=== PATIENT | male | born 1955 | race Caucasian/White ===

== ENCOUNTER → 2018-06-24 | Outpatient (CLI) | payer OTHER ==
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
== END ==
LOC: M PAIN 14:45
PROVIDERS: ATTEND Anesthesiology
DX: G89.29 Other chronic pain (principal); M25.50 Pain in unspecified joint; F17.210 Nicotine dependence, cigarettes, uncomplicated; Z88.8 Allergy status to other drugs, medicaments and biological substances; Z86.2 Personal history of diseases of the blood and blood-forming organs and certain disorders involving the immune mechanism; Z91.030 Bee allergy status; Z79.899 Other long term (current) drug therapy

== ENCOUNTER → 2018-07-15 | Outpatient (CLI) | payer OTHER ==
[2018-07-15 16:15] LABS: C REACTIVE PROTEIN QUANTITATIV 0.59 MG/DL (0.00-0.30); RHEUMATOID FACTOR QUANT < 10.0 IU/ML (<15.0)
--- NOTE | 2018-07-15 16:24 | REP ---
BILATERAL SHOULDERS, SIX VIEWS: HISTORY: Polyarthropathy. RIGHT SHOULDER: There is no acute fracture or dislocation. The joint spaces are normal in appearance. IMPRESSION: There is no acute fracture or dislocation. LEFT SHOULDER: There is no acute fracture or dislocation. The joint spaces are normal in appearance. IMPRESSION: There is no acute fracture or dislocation. Electronically Signed by Jared Lira MD 07/15/2018 04:31 P
--- NOTE | 2018-07-15 16:26 | REP ---
CERVICAL SPINE, THREE VIEW: HISTORY: Left arm weakness. There is no acute fracture or subluxation. The C5-6 and C6-7 intervertebral discs are decreased in height consistent with disc degeneration. Osteophytes are present on C5 through C7. IMPRESSION: Degenerative change as described above. Electronically Signed by Jared Lira MD 07/15/2018 04:31 P
--- NOTE | 2018-07-15 16:27 | REP ---
BILATERAL HANDS, FOUR VIEWS: HISTORY: Polyarthropathy. RIGHT HAND: There is no acute fracture or dislocation. The joint spaces are normal in appearance. IMPRESSION: There is no acute fracture or dislocation. LEFT HAND: There is no acute fracture or dislocation. The joint spaces are normal in appearance. A small cyst is present in the navicular bone. IMPRESSION: There is no acute fracture or dislocation. Electronically Signed by Jared Lira MD 07/15/2018 04:32 P
--- NOTE | 2018-07-15 17:17 | REP ---
BILATERAL KNEES, FOUR VIEWS: HISTORY: Polyarthropathy. RIGHT KNEE: There is no acute fracture or dislocation. The joint spaces are normal in appearance. IMPRESSION:There is no acute fracture or dislocation. LEFT KNEE: There is no acute fracture or dislocation. The joint spaces are normal in appearance. IMPRESSION:There is no acute fracture or dislocation. Electronically Signed by Jared Lira MD 07/16/2018 08:20 A
[2018-07-18 00:06] LABS: ANA (HEP2) Negative (.)
== END ==
LOC: M LAB 15:22
PROVIDERS: ATTEND Family Medicine
DX: M13.0 Polyarthritis, unspecified (principal)

== ENCOUNTER → 2019-09-01 | Outpatient (REF) | payer OTHER | LOC: M SFHCPLAZ 11:41 | PROVIDERS: ATTEND Internal Medicine | DX: Z00.00 Encounter for general adult medical examination without abnormal findings (principal); Z13.220 Encounter for screening for lipoid disorders; Z13.1 Encounter for screening for diabetes mellitus; Z86.2 Personal history of diseases of the blood and blood-forming organs and certain disorders involving the immune mechanism ==

== ENCOUNTER → 2019-09-03 | Outpatient (REF) | payer OTHER ==
[2019-09-03 17:40] LABS: HEMATOCRIT 45.1 % (42.0-52.0); HEMOGLOBIN 15.4 g/dl (13.5-17.5); MEAN CORPUSCULAR HEMOGLOBIN 31.1 pg (27.0-33.0); MEAN CORPUSCULAR HGB CONC 34.1 g/dl (32.0-36.5); MEAN CORPUSCULAR VOLUME 91.1 fl (80.0-96.0); PLATELET COUNT, AUTOMATED 272 10^3/uL (150-450); RED BLOOD COUNT 4.95 10^6/uL (4.30-6.10); WHITE BLOOD COUNT 10.4 10^3/uL (4.0-10.0)
[2019-09-03 18:24] LABS: ALBUMIN 3.8 GM/DL (3.2-5.2); ALT/SGPT 25 U/L (12-78); BILIRUBIN,TOTAL 0.7 MG/DL (0.2-1.0); BLOOD UREA NITROGEN 16 MG/DL (7-18); CALCIUM LEVEL 8.9 MG/DL (8.8-10.2); CARBON DIOXIDE LEVEL 28 MEQ/L (21-32); CHLORIDE LEVEL 102 MEQ/L (98-107); CHOLESTEROL LEVEL 207 MG/DL (<200); CHOLESTEROL RISK RATIO 6.468 (<5); CREATININE FOR GFR 0.89 MG/DL (0.70-1.30); GLOMERULAR FILTRATION RATE > 60.0 (>49); GLUCOSE, FASTING 73 MG/DL (70-100); HDL CHOLESTEROL 32 MG/DL (>40); LDL CHOLESTEROL 158 MG/DL (<100); NON-HDL-C 175 MG/DL; POTASSIUM SERUM 4.3 MEQ/L (3.5-5.1); SODIUM LEVEL 135 MEQ/L (136-145); TOTAL PROTEIN 7.4 GM/DL (6.4-8.2); TRIGLYCERIDES LEVEL 83 MG/DL (<150)
== END ==
LOC: M SFHCPLAZ 15:38
PROVIDERS: ATTEND Internal Medicine
DX: Z00.00 Encounter for general adult medical examination without abnormal findings (principal); Z13.220 Encounter for screening for lipoid disorders; Z13.1 Encounter for screening for diabetes mellitus; Z86.2 Personal history of diseases of the blood and blood-forming organs and certain disorders involving the immune mechanism

== ENCOUNTER → 2019-11-26 | Outpatient (CLI) | payer OTHER ==
[~2019-11-26] MED LIST: ATOR40TA75 PO; OMEP-218 PO
== END ==
LOC: M LABSMTC 10:27
PROVIDERS: ATTEND Internal Medicine Gastroenterology
DX: Z03.818 Encounter for observation for suspected exposure to other biological agents ruled out (principal); Z11.59 Encounter for screening for other viral diseases

== ENCOUNTER 2019-12-01 09:38 | Day surgery (SDC) | payer OTHER ==
[~2019-12-01] VITALS: Ht 177.8 cm; Wt 88.2 kg
[~2019-12-01 09:38] MED LIST changes: +LIDOCAINE 2% 100MG/5ML SDV (FOR ANES.) As Ordered ONE; +propofoL 200 MG/20 ML VIAL As Ordered ONE
[2019-12-01] MEDS ORDERED: ADVATE IV ONE (10:30)
[2019-12-01] MEDS ORDERED: propofoL 200 MG/20 ML VIAL As Ordered ONE (11:55)
[2019-12-01 12:51] VITALS: BP 114/76
--- NOTE | 2020-02-04 15:42 | ROOR ---
Patient Name: Rafael Palacio Procedure Date: 12/01/2019 8:57 AM Date of : 1955 Age: 64 Room: [facility] Gender: Male Note Status: Finalized Procedure: Colonoscopy Indications: Screening for colorectal malignant neoplasm Providers: Bakari Higuera MD Referring MD: Abraham Vitale Do Requesting Provider: Medicines: Monitored Anesthesia Care Complications: No immediate complications. Procedure: Pre-Anesthesia Assessment: - Prior to the procedure, a History and Physical was performed, and patient medications and allergies were reviewed. The patient is competent. The risks and benefits of the procedure and the sedation options and risks were discussed with the patient. All questions were answered and informed consent was obtained. Patient identification and proposed procedure were verified by the physician, the nurse and the anesthesiologist in the procedure room. Mental Status Examination: alert and oriented. Airway Examination: normal oropharyngeal airway and neck mobility. Respiratory Examination: clear to auscultation. CV Examination: normal. Prophylactic Antibiotics: The patient does not require prophylactic antibiotics. Prior Anticoagulants: The patient has taken no previous anticoagulant or antiplatelet agents. ASA Grade Assessment: II - A patient with mild systemic disease. After reviewing the risks and benefits, the patient was deemed in satisfactory condition to undergo the procedure. The anesthesia plan was to use monitored anesthesia care (MAC). Immediately prior to administration of medications, the patient was re-assessed for adequacy to receive sedatives. The heart rate, respiratory rate, oxygen saturations, blood pressure, adequacy of pulmonary ventilation, and response to care were monitored throughout the procedure. The physical status of the patient was re-assessed after the procedure. The Colonoscope was introduced through the anus and advanced to the terminal ileum, with identification of the appendiceal orifice and IC valve. The colonoscopy was performed without difficulty. The patient tolerated the procedure well. The quality of the bowel preparation was good. The terminal ileum, ileocecal valve, appendiceal orifice, and rectum were photographed. Scope insertion time was 4 minutes. Scope withdrawal time was 9 minutes. The total duration of the procedure was 14 minutes. Findings: The perianal and digital rectal examinations were normal. The terminal ileum appeared normal. Two sessile polyps were found in the descending colon and transverse colon. The polyps were 6 to 9 mm in size. These polyps were removed with a cold snare. Resection and retrieval were complete. For hemostasis, one hemostatic clip was successfully placed. There was no bleeding at the end of the procedure. Verification of patient identification for the specimen was done by the physician and nurse using the patient's name, date and medical record number. Estimated blood loss was minimal. Multiple small and large-mouthed diverticula were found from sigmoid to descending colon. There was no evidence of diverticular bleeding. Non-bleeding external and internal hemorrhoids were found during retroflexion. The hemorrhoids were medium-sized. Impression: - The examined portion of the ileum was normal. - Two 6 to 9 mm polyps in the descending colon and in the transverse colon, removed with a cold snare. Resected and retrieved. Clip was placed. - Moderate diverticulosis from sigmoid to descending colon. There was no evidence of diverticular bleeding. - Non-bleeding external and internal hemorrhoids. Recommendation: - Patient has a contact number available for emergencies. The signs and symptoms of potential delayed complications were discussed with the patient. Return to normal activities tomorrow. Written discharge instructions were provided to the patient. - High fiber diet. - Continue present medications. - Use fiber, for example Citrucel, Fibercon, Konsyl or Metamucil. - Await pathology results. - Repeat colonoscopy in 5-10 years for surveillance based on pathology results. - Telephone GI clinic for pathology results in 2 weeks. - Return to primary care physician. Bakari Higuera MD Bakari Higuera MD 12/01/2019 12:29:41 PM Number of Addenda: 0 Note Initiated On: 12/01/2019 8:57 AM Estimated Blood Loss: Estimated blood loss was minimal.
== END 2019-12-01 13:10 | disposition home or self-care (01) ==
LOC: M OPP 09:38
PROVIDERS: ATTEND Internal Medicine Gastroenterology
DX: Z12.11 Encounter for screening for malignant neoplasm of colon (principal); D12.6 Benign neoplasm of colon, unspecified; K64.8 Other hemorrhoids; K57.30 Diverticulosis of large intestine without perforation or abscess without bleeding
CPT/HCPCS: 45385; 88305; 96374; J7186

== ENCOUNTER 2020-05-24 12:28 | Emergency (ER) | payer OTHER ==
[~2020-05-24] VITALS: Ht 177.8 cm; Wt 91.6 kg
[~2020-05-24 12:28] MED LIST changes: -LIDOCAINE 2% 100MG/5ML SDV (FOR ANES.) As Ordered ONE; -propofoL 200 MG/20 ML VIAL As Ordered ONE
--- OUTSIDE RECORDS SUMMARY | 2020-05-24 13:07 | CCD ---
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 79912494 Problem Gastroesophageal reflux disease without esophagitis K21.9 Active 341836021 Problem Cigarette nicotine dependence without complication F17.210 Active 04712173 Problem Esophageal dysphagia R13.10 Active 67127983 Problem Constipation, unspecified constipation type K59.00 Active 24128148 Problem Smoker F17.200 Active 25529765 Problem History of hemophilia A Z86.2 Active 29806433 7 Problem Pain of multiple sites R52 Active 46264843 Problem Multiple joint pain M25.50 Active 13087098 ALLERGIES Allergen (clinical drug ingredient) Drug/Non Drug Allergy do cumented on EMR Reaction Allergy Type Onset Date Status bees Anaphylaxis Non Drug Allergy Active anticoagulants - hx of hemophilia Unknown Non Drug Reagan rgy Active ENCOUNTERS from 1955 to 2020-03-08 [place]counter [place] Date Provider [place] [facility] [place] [address] [place] [address] Mar, Abraham Jones IMMUNIZATIONS Vaccine Route Administration Date Status Influenza (18 yrs & older) Flublok IM Intramuscular June 10 Administered Pneumococcal Adult 0.5mL (Pneumovax 23) IM Intramuscular May 312018 Administered SOCIAL HISTORY Tobacco Use: Social History Observation Description Date Details (start date - stop date) Current Smoker Sex Assigned At : Social History Observation Description Sex Assigned At Unknown Education: Question Answer Notes Level of Education: High School Audit Question Answer Notes Total Score: 0 Interpretation: Alcohol Education Language: Question Answer Notes Languages spoken: Palauan Evangelical: Question Answer Notes Evangelical No faith beliefs that would impact health care. Domestic Violence: Question Answer Notes Status: Sexual Hx: Question Answer Notes Had sex in the last 12 months (vaginal, oral, or anal)? No Have you ever had an STD? No Drug and Alcohol Question Answer Notes Total Score: 0 Interpretation: No problems reported Alcohol Screening: Question Answer Notes Did you have a drink containing alcohol in the past year? No Points 0 Interpretation Negative Tobacco Use: Question Answer Notes Are you a: current smoker Patient counseled on the dangers of tobacco use and urged to quit: 06/30/2019 How many cigarettes a day do you smoke? 21- Are you interested in quitting? Not ready to quit Counseled the patient on smoking effects, education provided 06/30/2019 REASON FOR REFERRAL No Information VITAL SIGNS No information MEDICATIONS Medication SIG (Take, Route, Frequency, Duration) Notes Start Da te End Date Status Cymbalta 30 MG 1 capsule for pain Orally with food Once a day f or 30 day(s) May, Not-Taking EpiPen 2-Guillermo 0.3 MG/0.3ML as directed Injection At ons et of bee sting, then see doctor for 90 day(s) May, Active Polyethylene Glycol 3350 - as directed Orally BID x3 days, then daily PRN May, Active Omeprazole 20 MG 1 capsule Orally Once a day before largest meal for 90 days May, Active Zanaflex 2 MG 1 capsule as needed Orally b efore bedtime May repeat in 4 hrs for 30 day(s) May, Not-Taking Atorvastatin Calcium 40 MG 1 tablet Orally Once a day for 30 Active Tizanidine HCl 2 MG 1 tablet as needed Orally be fore bedtime May repeat in 4 hrs MDD2 for 30 day(s) May, Not-Taking Ventolin HFA 108 (90 Base) MCG/ACT 2 puffs as needed I nhalation every 6 hrs for 90 day(s) May, Active PROCEDURES No Information RESULTS No Results REASON FOR VISIT rx MEDICAL (GENERAL) HISTORY Type Description Date Medical History Hemophilia A Medical History Smoker, 1.5 ppd; >50 pk-yr Surgical History hernia repair 1968 Surgical History hernia repair 1999 Hospitalization History surgeries Hospitalization History related to hemophilia 1963, 1967, 19 75 Goals Section No Information Health Concerns No Information MEDICAL EQUIPMENT No Information MENTAL STATUS No Information FUNCTIONAL STATUS No Information ASSESSMENTS No Information PLAN OF TREATMENT Medication Medication Name Sig Start Date Stop Date EpiPen 2-Guillermo 0.3 MG/0.3ML as directed Injection At ons et of bee sting, then see doctor for 90 day(s) May, Atorvastatin Calcium 40 MG 1 tablet Orally Once a day for 30 Omeprazole 20 MG 1 capsule Orally Once a day before large st meal for 90 days May, Next Appt Details Provider Name:Abraham Jones, 2020-03-16 10:30:00 AM, [address] [facility], [place], [address], Insurance Providers Payer Name Payer Address Payer Phone Insured Name Patient Relati onship to Insured Coverage Start Date Coverage End Date [employer] [address] [facility] [phone] GELACIO REZA self
--- OUTSIDE RECORDS SUMMARY | 2020-05-24 13:07 | CCD ---
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 71156388 Problem Constipation, unspecified constipation type K59.00 Active 69157876 Problem Smoker F17.200 Active 84781975 Problem Pure hypercholesterolemia E78.00 Active 456930 004 Problem Gastroesophageal reflux disease without esophagitis K21.9 Active 968360379 Problem History of hemophilia A Z86.2 Active 82149582 7 Problem Pain of multiple sites R52 Active 24091721 Problem Multiple joint pain M25.50 Active 32772528 Problem Cigarette nicotine dependence without complication F17.210 Active 49635576 ALLERGIES Allergen (clinical drug ingredient) Drug/Non Drug Allergy do cumented on EMR Reaction Allergy Type Onset Date Status bees Anaphylaxis Non Drug Allergy Active anticoagulants - hx of hemophilia Unknown Non Drug Reagan rgy Active ENCOUNTERS from 1957 to 2020-04-28 Encounter Location Date Provider Diagnosis [facility] Urology [address] [place] [address] Apr Abraham Jones IMMUNIZATIONS Vaccine Route Administration Date Status Influenza (18 yrs & older) Flublok IM Intramuscular June 10 Administered Pneumococcal Adult 0.5mL (Pneumovax 23) IM Intramuscular May 312018 Administered TDAP 0.5mL (Boostrix) IM Intramuscular Mar 17, 2020 Administe red SOCIAL HISTORY Tobacco Use: Social History Observation Description Date Details (start date - stop date) Current Smoker Sex Assigned At : Social History Observation Description Sex Assigned At Unknown Education: Question Answer Notes Level of Education: High School Audit Question Answer Notes Total Score: 0 Interpretation: Alcohol Education Language: Question Answer Notes Languages spoken: [place] Helen[place] Christian: Question Answer Notes Christian No voodoo beliefs that would impact health care. Domestic [...] many cigarettes a day do you smoke? 21-30 Are you interested in quitting? Not ready to quit Counseled the patient on smoking effects, education provided 06/30/2019 REASON FOR REFERRAL No Information VITAL SIGNS No information MEDICATIONS Medication SIG (Take, Route, Frequency, Duration) Notes Start Da te End Date Status Tizanidine HCl 2 MG 1 tablet as needed Orally be fore bedtime May repeat in 4 hrs MDD2 for 30 day(s) May, Not-Taking Polyethylene Glycol 3350 - as directed Orally BID x3 days, then daily PRN May, Active Omeprazole 20 MG 1 capsule Orally Once a day before largest meal for 90 days May, Active Atorvastatin Calcium 40 MG 1 tablet Orally Once a day for 30 Active Cymbalta 30 MG 1 capsule for pain Orally with food Once a day f or 30 day(s) May, Not-Taking Zanaflex 2 MG 1 capsule as needed Orally b efore bedtime May repeat in 4 hrs for 30 day(s) May, Not-Taking EpiPen 2-Guillermo 0.3 MG/0.3ML as directed Injection At ons et of bee sting, then see doctor for 90 day(s) May, Active Ventolin HFA 108 (90 Base) MCG/ACT 2 puffs as needed I nhalation every 6 hrs for 90 day(s) May, Active PROCEDURES No Information RESULTS No Results REASON FOR VISIT refill MEDICAL (GENERAL) HISTORY Type Description Date Medical History Hemophilia A Medical History Smoker, 1.5 ppd; >50 pk-yr Surgical History hernia repair 1968 Surgical History hernia repair 1999 Hospitalization History surgeries Hospitalization History related to hemophilia 1967, [age] Goals Section No Information Health Concerns No Information MEDICAL EQUIPMENT No Information MENTAL STATUS No Information FUNCTIONAL STATUS No Information ASSESSMENTS No Information PLAN OF TREATMENT Medication Medication Name Sig Start Date Stop Date Atorvastatin Calcium 40 MG 1 tablet Orally Once a day for 30 Insurance Providers Payer Name Payer Address Payer Phone Insured Name Patient Relati onship to Insured Coverage Start Date Coverage End Date [facility] [address] [facility] [address] [phone] GELACIO REZA self
--- OUTSIDE RECORDS SUMMARY | 2020-05-24 13:07 | CCD ---
Author Author [facility] Organization [facility] Address Unknown Phone Unavailable Support Name Relationship Address Phone [employer] Next Of Kin [address] [place], [place] [phone] YASMINE REZA Next Of Kin [address] [place] [address] ASHLYN LAKHANI Next Of Kin [place], [place] [id number] Re-disclosure Warning The records that you are about to access may contain information from federally-assisted alcohol or drug abuse programs. If such information is present, then the following federally mandated warning applies: This information has been disclosed to you from records protected by federal confidentiality rules (42 CFR part 2). The federal rules prohibit you from making any further disclosure of this information unless further disclosure is expressly permitted by the written consent of the person to whom it pertains or as otherwise permitted by 42 CFR part 2. A general authorization for the release of medical or other information is NOT sufficient for this purpose. The Federal rules restrict any use of the information to criminally investigate or prosecute any alcohol or drug abuse patient.The records that you are about to access may contain highly sensitive health information, the redisclosure of which is protected by Article 27-F of the [facility] Public Health law. If you continue you may have access to information: Regarding HIV / AIDS; Provided by facilities licensed or operated by the [facility] Office of Mental Health; or Provided by the [facility] Office for People With Developmental Disabilities. If such information is present, then the following [facility] mandated warning applies: This information has been disclosed to you from confidential records which are protected by state law. State law prohibits you from making any further disclosure of this information without the specific written consent of the person to whom it pertains, or as otherwise permitted by law. Any unauthorized further disclosure in violation of state law may result in a fine or mcfp sentence or both. A general authorization for the release of medical or other information is NOT sufficient authorization for further disc losure. 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 eCW1 ( [facility]) bees bees bees Anaphylaxis Active eCW1 ([facility]) Encounters Encounter Providers Location Date Indications Data Source(s ) Outpatient 05/24/2020 10:21:44 AM EST DocuTap ([facility]) Unknown [address] [facility] [address] 04/28/2020 12:00:00 AM EST eCW1 ([facility]) Outpatient [address] [facility] [address] 03/16/2020 12:00:00 AM EST eCW1 ([facility]) Unknown [address] [facility] [address] 03/08/2020 12:00:00 AM EST eCW1 ([facility]) Unknown [address] [facility] [place] [address] 03/08/2020 12:00:00 AM EST eCW1 ([facility]) Unknown [address] [facility] [place] [address] 01/01/2020 12:00:00 AM EDT eCW1 ([facility]) Unknown [address] [facility] [place] [address] 09/04/2019 12:00:00 AM EDT eCW1 ([facility]) Outpatient [address] [facility] [place] [address] 08/28/2019 12:00:00 AM EDT eCW1 ([facility]) [facility] [address] [facility] [place] [address] 07/16/2019 12:00:00 AM EDT eCW1 ([facility]) [facility] [address] [facility] [place] [address] 06/30/2019 12:00:00 AM EDT eCW1 ([facility]) [facility] [place] [address] [facility] [place] [address] 06/30/2019 12:00:00 AM EDT eCW1 ([facility]) [facility] [place] [address] [facility] [address] 06/30/2019 12:00:00 AM EDT eCW1 ([facility]) Immunizations Vaccine Date Status Description Data Source(s) Tdap 03/17/2020 03:33:00 PM EST completed e CW1 ([facility]) Tdap 03/17/2020 03:33:00 PM EST completed e CW1 ([facility]) INFLUENZA VIRUS VACCINE QUADRIVAL (6 MOS AND UP)/PF 01/18/2020 12:00:00 AM EDT completed [facility] Medications Medication Brand Name Start Date Product Form Dose Route Admi nistrative Instructions Pharmacy Instructions Status Indications Reaction Description Data Source(s) 5 mg 11/12/2019 12:00:00 AM EDT tablet,delayed release (DR/EC) 4 TAKE FOUR TABLETS BY MOUTH TOGETHER PER BOWEL PREP INSTRUCTIONS TAKE FOUR TABLETS BY MOUTH TOGETHER PER BOWEL PREP INSTRUCTIONS SOLD: 11/19/2019 [facility] 420 gram 11/12/2019 12:00:00 AM EDT recon soln 4000 DRINK PER THE PRE- PROCEDURE INSTRUCTIONS DRINK PER THE PRE-PROCEDURE INSTRUCTIONS SOLD: 020 [facility] atorvastatin 40 MG Oral Tablet Atorvastatin Calcium 40 MG Atorvastatin Calcium 40 MG 09/05/2019 12:00:00 AM EDT 1.0 {tablet} activ e Atorvastatin Calcium 40 MG eCW1 ([facility]) atorvastatin 40 MG Oral Tablet Atorvastatin Calcium 40 MG Atorvastatin Calcium 40 MG 09/05/2019 12:00:00 AM EDT 1.0 {tablet} activ e Atorvastatin Calcium 40 MG eCW1 ([facility]) atorvastatin 40 MG Oral Tablet Atorvastatin Calcium 40 MG Atorvastatin Calcium 40 MG 09/05/2019 12:00:00 AM EDT 1.0 {tablet} activ e Atorvastatin Calcium 40 MG eCW1 ([facility]) Polyethylene Glycol 3350 - Polyethylene Glycol 3350 - 2019 12:00:00 AM EDT active Polyethylene Glyc ol 3350 - eCW1 ([facility]) Polyethylene Glycol 3350 - Polyethylene Glycol 3350 - 2019 12:00:00 AM EDT active as directed eCW1 ([facility]) Polyethylene Glycol 3350 - Polyethylene Glycol 3350 - 2019 12:00:00 AM EDT active Polyethylene Glyc ol 3350 - eCW1 ([facility]) Polyethylene Glycol 3350 - Polyethylene Glycol 3350 - 2019 12:00:00 AM EDT active Polyethylene Glyc ol 3350 - eCW1 ([facility]) Polyethylene Glycol 3350 - Polyethylene Glycol 3350 - 2019 12:00:00 AM EDT active Polyethylene Glyc ol 3350 - eCW1 ([facility]) Polyethylene Glycol 3350 - Polyethylene Glycol 3350 - 2019 12:00:00 AM EDT active Polyethylene Glyc ol 3350 - eCW1 ([facility]) Polyethylene Glycol 3350 - Polyethylene Glycol 3350 - 2019 12:00:00 AM EDT active Polyethylene Glyc ol 3350 - eCW1 ([facility]) Polyethylene Glycol 3350 - Polyethylene Glycol 3350 - 2019 12:00:00 AM EDT active Polyethylene Glyc ol 3350 - eCW1 ([facility]) Insurance Providers Payer name Policy type / Coverage type Policy ID Covered green party ID Covered green party's relationship to myers Policy Myers Plan Information [facility] [id number] [employer] [facility] [id number] Employee [id number] MVP H [id number] Self [id number] MVP EXCHANGE U [id number] Self [id number] ANSI-Commercial [id number] ANSI-Commercial [id number] ANSI-Commercial [id number] ANSI-Commercial [id number] Problems, Conditions, and Diagnoses Code Display Name Description Problem Type Effective Dates Data Source(s) E78.00 [id number] Pure hypercholesterolemia Problem 03/16/2020 12:00:00 AM EST eCW1 ([facility]) F17.210 25602750 Cigarette nicotine dependence without com plication Problem 09/02/2019 12:00:00 AM EDT eCW1 ([facility]) K59.00 11240060 Constipation, unspecified constipation ty pe Problem 06/30/2019 12:00:00 AM EDT eCW1 ([facility]) K59.00 43118381 Constipation, unspecified constipation ty pe Problem 06/30/2019 12:00:00 AM EDT eCW1 ([facility]) Surgeries/Procedures Procedure Description Date Indications Data Source(s) Immunization: Boostrix 0.5mL IM (TDAP) 03/16/2020 12:0 0:00 AM EST eCW1 ([facility]) Results ID Date Data Source [id number] 11/26/2019 10:55:00 AM EDT [facility] Name Value Range Interpretation Code Description Data Kristal rce(s) Supporting Document(s) SARS coronavirus 2 RNA [facility] This lab was ordered by [facility] and reported by [facility]. Procedure Social History Code Duration Value Status Description Data Source(s ) Smoking 03/16/2020 12:00:00 AM EST Current Smoker completed Curre nt Smoker eCW1 ([facility]) Smoking 03/16/2020 12:00:00 AM EST Current Smoker completed Curre nt Smoker eCW1 ([facility]) Smoking 09/02/2019 12:00:00 AM EDT Current Smoker completed Curre nt Smoker eCW1 ([facility]) Smoking 09/02/2019 12:00:00 AM EDT Current Smoker completed Curre nt Smoker eCW1 ([facility]) Smoking 09/02/2019 12:00:00 AM EDT Current Smoker completed Curre nt Smoker eCW1 ([facility]) Smoking 09/02/2019 12:00:00 AM EDT Current Smoker completed Curre nt Smoker eCW1 ([facility]) Smoking 09/02/2019 12:00:00 AM EDT Current Smoker completed Curre nt Smoker eCW1 ([facility]) Vital Signs ID Date Data Source UNK Name Value Range Interpretation Code Description Data Source(s) Diastolic blood pressure 88 mm[Hg] 88 mm[Hg] eCW1 ([facility]) Systolic blood pressure 172 mm[Hg] 172 mm[Hg] e CW1 ([facility]) Body temperature 98.1 [degF] 98.1 [degF] eCW1 ( [facility]) Respiratory rate 17 /min 17 /min eCW1 ([facility]) Heart rate 109 /min 109 /min eCW1 ([facility]) Body mass index (BMI) [Ratio] 29.99 kg/m2 29.99 kg/m2 W1 ([facility]) Body height 70 [in_i] 70 [in_i] eCW1 ([facility]) Body weight 209 [lb_av] 209 [lb_av] eCW1 ([facility]) Diastolic blood pressure 70 mm[Hg] 70 mm[Hg] eCW1 ([facility]) Systolic blood pressure 122 mm[Hg] 122 mm[Hg] e CW1 ([facility]) Body temperature 97.8 [degF] 97.8 [degF] eCW1 ( [facility]) Respiratory rate 18 /min 18 /min eCW1 ([facility]) Heart rate 109 /min 109 /min eCW1 ([facility]) Body mass index (BMI) [Ratio] 29.33 kg/m2 29.33 kg/m2 W1 ([facility]) Body height 70 [in_i] 70 [in_i] eCW1 ([facility]) Body weight 204.4 [lb_av] 204.4 [lb_av] eCW1 ([facility]) Diastolic blood pressure 70 mm[Hg] 70 mm[Hg] eCW1 ([facility]) Systolic blood pressure 116 mm[Hg] 116 mm[Hg] e CW1 ([facility]) Body temperature 96.4 [degF] 96.4 [degF] eCW1 ( [facility]) Respiratory rate 18 /min 18 /min eCW1 ([facility]) Heart rate 105 /min 105 /min eCW1 ([facility]) Body mass index (BMI) [Ratio] 29.99 kg/m2 29.99 kg/m2 eCW1 ([facility]) Body height 70 [in_us] 70 [in_us] eCW1 ([facility]) Body weight Measured 209 [lb_av] 209 [lb_av] eC W1 ([facility]) Patient Treatment Plan of Care Planned Activity Planned Date Details Description Data Source (s) atorvastatin 40 MG Oral Tablet 09/05/2019 12:00:00 AM EDT eCW1 ([facility]) atorvastatin 40 MG Oral Tablet 09/05/2019 12:00:00 AM EDT eCW1 ([facility]) atorvastatin 40 MG Oral Tablet 09/05/2019 12:00:00 AM EDT eCW1 ([facility]) Polyethylene Glycol 3350 - 06/30/2019 12:00:00 AM EDT eCW1 ([facility])
--- OUTSIDE RECORDS SUMMARY | 2020-05-24 13:07 | CCD ---
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 45423159 Problem Gastroesophageal reflux disease without esophagitis K21.9 Active 741308990 Problem Cigarette nicotine dependence without complication F17.210 Active 84197000 Problem Esophageal dysphagia R13.10 Active 67096901 Problem Constipation, unspecified constipation type K59.00 Active 36392853 Problem Smoker F17.200 Active 99545538 Problem History of hemophilia A Z86.2 Active 42316302 7 Problem Pain of multiple sites R52 Active 90750237 Problem Multiple joint pain M25.50 Active 16048250 ALLERGIES Allergen (clinical drug ingredient) Drug/Non Drug Allergy do cumented on EMR Reaction Allergy Type Onset Date Status bees Anaphylaxis Non Drug Allergy Active anticoagulants - hx of hemophilia Unknown Non Drug Reagan rgy Active ENCOUNTERS from 1957 to 2020-03-08 Encounter Location Date Provider Diagnosis [facility] [address] [place] [address] Mar, Abraham Jones IMMUNIZATIONS Vaccine Route Administration [...] Education Language: Question Answer Notes Languages spoken: Lebanese Buddhist: Question Answer Notes Buddhist No mandaen beliefs that would impact health care. Domestic [...] Provider Name:Abraham Jones, 2020-03-16 10:30:00 AM, [address] [facility], [place], [address], Insurance Providers Payer Name Payer Address Payer Phone Insured Name Patient Relati onship to Insured Coverage Start Date Coverage End Date [employer] [address] [facility] [address] GELACIO REZA self
--- OUTSIDE RECORDS SUMMARY | 2020-05-24 13:07 | CCD ---
Author Author [facility] Organization 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 37360305 Problem Constipation, unspecified constipation type K59.00 Active 26478034 Problem Smoker F17.200 Active 03199128 Problem Pure hypercholesterolemia E78.00 Active 485209 004 Problem Gastroesophageal reflux disease without esophagitis K21.9 Active 684398666 Problem History of hemophilia A Z86.2 Active 56436265 7 Problem Pain of multiple sites R52 Active 41825433 Problem Multiple joint pain M25.50 Active 19564610 Problem Cigarette nicotine dependence without complication F17.210 Active 82172113 ALLERGIES Allergen (clinical drug ingredient) Drug/Non Drug Allergy do cumented on EMR Reaction Allergy Type Onset Date Status bees Anaphylaxis Non Drug Allergy Active anticoagulants - hx of hemophilia Unknown Non Drug Reagan rgy Active ENCOUNTERS from 1955 to 2020-03-18 Encounter Location Date Provider Diagnosis [facility] [place] [address] [place] [address] Mar, Abraham Jones Elevated blood pressure read ing R03.0 ; Pure hypercholesterolemia E78.00 and Encounter for immunization Z23 IMMUNIZATIONS Vaccine Route Administration Date Status Influenza [...] Education Language: Question Answer Notes Languages spoken: Australian Uatsdin: Question Answer Notes Uatsdin No mormon beliefs that would impact health care. Domestic [...] many cigarettes a day do you smoke? - Are you interested in quitting? Not ready to quit Counseled the patient on smoking effects, education provided 06/30/2019 REASON FOR REFERRAL No Information VITAL SIGNS Weight 209 lbs Mar, Height 70 in Mar, BMI 29.99 kg/m2 Mar, Heart Rate 109 /min Mar, Respiratory Rate 17 /min Mar, Temperature 98.1 degrees Fahrenheit Mar, Oximetry 96 Mar, Blood pressure systolic 172 mm Hg Mar, Blood pressure diastolic 88 mm Hg Mar, MEDICATIONS Medication SIG (Take, Route, Frequency, Duration) [...] hrs for 90 day(s) May, Active PROCEDURES from 1955 to 2020-03-18 Procedure Date Ordered Result Body Site Immunization: Boostrix 0.5mL IM (TDAP) 2020-03-16 N/A RESULTS No Results REASON FOR VISIT 6 month follow up MEDICAL (GENERAL) HISTORY Type Description Date Medical History Hemophilia A Medical History Smoker, 1.5 ppd; >50 pk-yr Surgical History hernia repair 1968 Surgical History hernia repair 1999 Hospitalization History surgeries Hospitalization History related to hemophilia 1963, 1967, 77 Goals Section No Information Health Concerns No Information MEDICAL EQUIPMENT No Information MENTAL STATUS No Information FUNCTIONAL STATUS No Information ASSESSMENTS Encounter Date Diagnosis Assessment Notes Treatment Notes Treatm ent Clinical Notes Mar, Elevated blood pressure reading (ICD-10 - R03.0) Patient's initial blood pressure reading was elevated however, to come down to 140/80 on repeat. I advised patient to try to check his blood pressure a few times a week and if it is consistently above 140/90, patient will call the office. At this time, will not start any medication. We will see the patient back in August for his health maintenance exam and recheck his blood pressure at that time. Mar, Pure hypercholesterolemia (ICD-10 - E78.00) Patient was started on atorvastatin after the patient's laboratory studies after his HME was elevated. We will recheck this prior to his health maintenance exam in August. Mar, Encounter for immunization (ICD-10 - Z23) Patient has not had a tetanus vaccine in some time so this is given today. PLAN OF TREATMENT Treatment Notes Assessment Notes Clinical Notes Elevated blood pressure reading Patient's initial bloo d pressure reading was elevated however, to come down to 140/80 on repeat. I advised patient to try to check his blood pressure a few times a week and if it is consistently above 1 40/90, patient will call the office. At this time, will not start any medication. We will see the patient back in August for his health maintenance exam and recheck his blood pressure at that time. Pure hypercholesterolemia Patient was started on atorv astatin after the patient's laboratory studies after his HME was elevated. We will recheck this prior to his health maintenance exam in August. Encounter for immunization Patient has not had a tetan us vaccine in some time so this is given today. Next Appt Details August 2020 Reason:HME, labs before Follow Up:August 2020HME, labs before Insurance Providers Payer Name Payer Address Payer Phone Insured Name Patient Relati onship to Insured Coverage Start Date Coverage End Date [facility] [address] [facility] [phone] GELACIO REZA self
--- OUTSIDE RECORDS SUMMARY | 2020-05-24 14:54 | CCD ---
Author Author [facility] Organization [facility] Address Unknown Phone Unavailable Care Team Providers Care Teacher Education Instructor Name Role Phone CAYLA, T TARAN RESPIRATORY THERAPY TECHNICIAN Unavailable Unavailable CAYLA, T TARAN RESPIRATORY THERAPY TECHNICIAN Unavailable Unavailable CAYLA, T TARAN RESPIRATORY THERAPY TECHNICIAN Unavailable Unavailable CAYLA, T TARAN RESPIRATORY THERAPY TECHNICIAN Unavailable Unavailable CAYLA, T TARAN RESPIRATORY THERAPY TECHNICIAN Unavailable Unavailable CAYLA, T TARAN RESPIRATORY THERAPY TECHNICIAN Unavailable Unavailable CAYLA, T TARAN RESPIRATORY THERAPY TECHNICIAN Unavailable Unavailable CAYLA, T TARAN RESPIRATORY THERAPY TECHNICIAN Unavailable Unavailable CAYLA, T TARAN RESPIRATORY THERAPY TECHNICIAN Unavailable Unavailable CAYLA, T TARAN RESPIRATORY THERAPY TECHNICIAN Unavailable Unavailable CAYLA, T TARAN RESPIRATORY THERAPY TECHNICIAN Unavailable Unavailable CAYLA, T TARAN RESPIRATORY THERAPY TECHNICIAN Unavailable Unavailable CAYLA, T TARAN RESPIRATORY THERAPY TECHNICIAN Unavailable Unavailable CAYLA, T TARAN RESPIRATORY THERAPY TECHNICIAN Unavailable Unavailable CAYLA, T TARAN RESPIRATORY THERAPY TECHNICIAN Unavailable Unavailable CAYLA, T TARAN RESPIRATORY THERAPY TECHNICIAN Unavailable Unavailable CAYLA, T TARAN RESPIRATORY THERAPY TECHNICIAN Unavailable Unavailable CAYLA, T TARAN RESPIRATORY THERAPY TECHNICIAN Unavailable Unavailable CAYLA, T TARAN RESPIRATORY THERAPY TECHNICIAN Unavailable Unavailable CAYLA, T TARAN RESPIRATORY THERAPY TECHNICIAN Unavailable Unavailable CAYLA, T TARAN RESPIRATORY THERAPY TECHNICIAN Unavailable Unavailable CAYLA, T TARAN RESPIRATORY THERAPY TECHNICIAN Unavailable Unavailable CAYLA, T TARAN RESPIRATORY THERAPY TECHNICIAN Unavailable Unavailable CAYLA, T TARAN RESPIRATORY THERAPY TECHNICIAN Unavailable Unavailable CAYLA, T TARAN RESPIRATORY THERAPY TECHNICIAN Unavailable Unavailable CAYLA, T TARAN RESPIRATORY THERAPY TECHNICIAN Unavailable Unavailable CAYLA, T TARAN RESPIRATORY THERAPY TECHNICIAN Unavailable Unavailable CAYLA, T TARAN RESPIRATORY THERAPY TECHNICIAN Unavailable Unavailable CAYLA, T TARAN RESPIRATORY THERAPY TECHNICIAN Unavailable Unavailable CAYLA, T TARAN RESPIRATORY THERAPY TECHNICIAN Unavailable Unavailable CAYLA, T TARAN RESPIRATORY THERAPY TECHNICIAN Unavailable Unavailable CAYLA, T TARAN RESPIRATORY THERAPY TECHNICIAN Unavailable Unavailable CAYLA, T TARAN RESPIRATORY THERAPY TECHNICIAN Unavailable Unavailable CAYLA, T TARAN RESPIRATORY THERAPY TECHNICIAN Unavailable Unavailable CAYLA, T TARAN RESPIRATORY THERAPY TECHNICIAN Unavailable Unavailable CAYLA, T TARAN RESPIRATORY THERAPY TECHNICIAN Unavailable Unavailable Re-disclosure Warning The records that you are [...] is protected by Article 27-F of the [facility] Public Health law. If you continue you may have access to information: Regarding HIV / AIDS; Provided by facilities licensed or operated by the [facility] Office of Mental Health; or Provided by the [facility] Office for People With Developmental Disabilities. If such information is present, then the following [facility] mandated warning applies: This information has been [...] law may result in a fine or fci sentence or both. A general authorization for the release of medical or other information is NOT sufficient authorization for further disc losure. 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 eCW1 ( [facility]) bees bees bees Anaphylaxis Active eCW1 ([facility]) Encounters Encounter Providers Location Date Indications Data Source(s ) Outpatient Attender: TARAN KULKARNI SANTOS 05/24/2020 10:21:44 AM EST [facility] ([facility]) [place] [address] [address] 04/28/2020 12:00:00 AM EST eCW1 ([facility] [place] [address] [address] 03/16/2020 12:00:00 AM EST eCW1 ([facility]) [place] [address] [address] 03/08/2020 12:00:00 AM EST eCW1 ([facility]) [place] [address] [address] 03/08/2020 12:00:00 AM EST [facility]CW1 [facility] [place] [address] [address] 01/01/2020 12:00:00 AM EDT eCW1 ([facility]) [place] [address] [address] 09/04/2019 12:00:00 AM EDT eCW1 ([facility]) [place] [address] [address] 08/28/2019 12:00:00 AM EDT eCW1 ([facility]) [facility] [address] [address] 07/16/2019 12:00:00 AM EDT eCW1 ([facility]) [facility] [address] [address] 06/30/2019 12:00:00 AM EDT eCW1 ([facility]) [facility] [place] [address] [address] 06/30/2019 12:00:00 AM EDT eCW1 ([facility]) [facility] [address] [address] 06/30/2019 12:00:00 AM EDT eCW1 ([facility]) Immunizations Vaccine Date Status Description Data Source(s) Tdap 03/17/2020 03:33:00 PM EST completed e CW1 ([facility]) Tdap 03/17/2020 03:33:00 PM EST completed e CW1 ([facility]) INFLUENZA VIRUS VACCINE QUADRIVAL (6 MOS AND UP)/PF 01/18/2020 12:00:00 AM EDT completed [facility] Medications Medication Brand Name Start Date Product Form Dose Route Admi nistrative Instructions Pharmacy Instructions Status Indications Reaction Description Data Source(s) 5 mg 11/12/2019 12:00:00 AM EDT tablet,delayed release (DR/EC) 4 TAKE FOUR TABLETS BY MOUTH TOGETHER PER BOWEL PREP INSTRUCTIONS TAKE FOUR TABLETS BY MOUTH TOGETHER PER BOWEL PREP INSTRUCTIONS SOLD: 11/19/2019 [facility] 420 gram 11/12/2019 12:00:00 AM EDT recon soln 4000 DRINK PER THE PRE- PROCEDURE INSTRUCTIONS DRINK PER THE PRE-PROCEDURE INSTRUCTIONS SOLD: 020 [facility] atorvastatin 40 MG Oral Tablet Atorvastatin Calcium 40 MG Atorvastatin Calcium 40 MG 09/05/2019 12:00:00 AM EDT 1.0 {tablet} activ e Atorvastatin Calcium 40 MG eCW1 ([facility]) atorvastatin 40 MG Oral Tablet Atorvastatin Calcium 40 MG Atorvastatin Calcium 40 MG 09/05/2019 12:00:00 AM EDT 1.0 {tablet} activ e Atorvastatin Calcium 40 MG eCW1 ([facility]) atorvastatin 40 MG Oral Tablet Atorvastatin Calcium 40 MG Atorvastatin Calcium 40 MG 09/05/2019 12:00:00 AM EDT 1.0 {tablet} activ e Atorvastatin Calcium 40 MG eCW1 ([facility]) Polyethylene Glycol 3350 - Polyethylene Glycol 3350 - 2019 12:00:00 AM EDT active Polyethylene Glyc ol 3350 - eCW1 ([facility]) Polyethylene Glycol 3350 - Polyethylene Glycol 3350 - 2019 12:00:00 AM EDT active as directed eCW1 ([facility]) Polyethylene Glycol 3350 - Polyethylene Glycol 3350 - 2019 12:00:00 AM EDT active Polyethylene Glyc ol 3350 - eCW1 ([facility]) Polyethylene Glycol 3350 - Polyethylene Glycol 3350 - 2019 12:00:00 AM EDT active Polyethylene Glyc ol 3350 - eCW1 ([facility]) Polyethylene Glycol 3350 - Polyethylene Glycol 3350 - 2019 12:00:00 AM EDT active Polyethylene Glyc ol 3350 - eCW1 ([facility]) Polyethylene Glycol 3350 - Polyethylene Glycol 3350 - 2019 12:00:00 AM EDT active Polyethylene Glyc ol 3350 - eCW1 ([facility]) Polyethylene Glycol 3350 - Polyethylene Glycol 3350 - 2019 12:00:00 AM EDT active Polyethylene Glyc ol 3350 - eCW1 ([facility]) Polyethylene Glycol 3350 - Polyethylene Glycol 3350 - 2019 12:00:00 AM EDT active Polyethylene Glyc ol 3350 - eCW1 ([facility]) Insurance Providers Payer name Policy type / Coverage type Policy ID Covered green party ID Covered green party's relationship to myers Policy Myers Plan Information [employer] [id number] SP 05 [id number] [facility] [id number] SP [id number] [employer] [facility] [id number] Employee [id number] MVP H [id number] Self [id number] [employer] EXCHANGE U [id number] Self [id number] [employer]mercial [id number] ANSI-Commercial [id number] ANSI-[id number] [id number] ANSI-[employer]mercial [id number] Problems, Conditions, and Diagnoses Code Display Name Description Problem Type Effective Dates Data Source(s) E78.00 [id number] Pure hypercholesterolemia Problem 03/16/2020 12:00:00 AM EST eCW1 ([facility]) F17.210 [id number] Cigarette nicotine dependence without com plication Problem 09/02/2019 12:00:00 AM EDT eCW1 ([facility]) K59.00 [id number] Constipation, unspecified constipation ty pe Problem 06/30/2019 12:00:00 AM EDT eCW1 ([facility]) K59.00 [id number] Constipation, unspecified constipation ty pe Problem 06/30/2019 12:00:00 AM EDT eCW1 ([facility]) Surgeries/Procedures Procedure Description Date Indications Data Source(s) Immunization: Boostrix 0.5mL IM (TDAP) 03/16/2020 12:0 0:00 AM EST eCW1 ([facility]) Results ID Date Data Source [id number] 11/26/2019 10:55:00 AM EDT [facility] Name Value Range Interpretation Code Description Data Kristal rce(s) Supporting Document(s) SARS coronavirus 2 RNA [facility] This lab was ordered by [facility] and reported by [facility]. Procedure Social History Code Duration Value Status Description Data Source(s ) Smoking 03/16/2020 12:00:00 AM EST Current Smoker completed Curre nt Smoker eCW1 ([facility]) Smoking 03/16/2020 12:00:00 AM EST Current Smoker completed Curre nt Smoker eCW1 ([facility]) Smoking 09/02/2019 12:00:00 AM EDT Current Smoker completed Curre nt Smoker eCW1 ([facility]) Smoking 09/02/2019 12:00:00 AM EDT Current Smoker completed Curre nt Smoker eCW1 ([facility]) Smoking 09/02/2019 12:00:00 AM EDT Current Smoker completed Curre nt Smoker eCW1 ([facility]) Smoking 09/02/2019 12:00:00 AM EDT Current Smoker completed Curre nt Smoker eCW1 ([facility]) Smoking 09/02/2019 12:00:00 AM EDT Current Smoker completed Curre nt Smoker eCW1 ([facility]) Vital Signs ID Date Data Source UNK Name Value Range Interpretation Code Description Data Source(s) Diastolic blood pressure 88 mm[Hg] 88 mm[Hg] eCW1 ([facility]) Systolic blood pressure 172 mm[Hg] 172 mm[Hg] e CW1 ([facility]) Body temperature 98.1 [degF] 98.1 [degF] eCW1 ( [facility]) Respiratory rate 17 /min 17 /min eCW1 ([facility] Heart rate 109 /min 109 /min eCW1 ([facility]) Body mass index (BMI) [Ratio] 29.99 kg/m2 29.99 kg/m2 W1 ([facility]) Body height 70 [in_i] 70 [in_i] eCW1 ([facility]) Body weight 209 [lb_av] 209 [lb_av] eCW1 ([facility]) Diastolic blood pressure 70 mm[Hg] 70 mm[Hg] eCW1 ([facility]) Systolic blood pressure 122 mm[Hg] 122 mm[Hg] e CW1 ([facility]) Body temperature 97.8 [degF] 97.8 [degF] eCW1 ( [facility]) Respiratory rate 18 /min 18 /min eCW1 ([facility] Heart rate 109 /min 109 /min eCW1 ([facility]) Body mass index (BMI) [Ratio] 29.33 kg/m2 29.33 kg/m2 eCW1 ([facility]) Body height 70 [in_i] 70 [in_i] eCW1 ([facility]) Body weight 204.4 [lb_av] 204.4 [lb_av] eCW1 ([facility]) Diastolic blood pressure 70 mm[Hg] 70 mm[Hg] eCW1 ([facility]) Systolic blood pressure 116 mm[Hg] 116 mm[Hg] e CW1 ([facility]) Body temperature 96.4 [degF] 96.4 [degF] eCW1 ( [facility]) Respiratory rate 18 /min 18 /min eCW1 ([facility]) Heart rate 105 /min 105 /min eCW1 ([facility]) Body mass index (BMI) [Ratio] 29.99 kg/m2 29.99 kg/m2 eCW1 ([facility]) Body height 70 [in_us] 70 [in_us] eCW1 ([facility]) Body weight Measured 209 [lb_av] 209 [lb_av] eC W1 ([facility]) Patient Treatment Plan of Care Planned Activity Planned Date Details Description Data Source (s) atorvastatin 40 MG Oral Tablet 09/05/2019 12:00:00 AM EDT eCW1 ([facility]) atorvastatin 40 MG Oral Tablet 09/05/2019 12:00:00 AM EDT eCW1 ([facility]) atorvastatin 40 MG Oral Tablet 09/05/2019 12:00:00 AM EDT eCW1 ([facility]) Polyethylene Glycol 3350 - 06/30/2019 12:00:00 AM EDT eCW1 ([facility])
[2020-05-24] MEDS ORDERED: ISOVUE-370 76% 100ML VIAL As Ordered ONE (15:25)
--- NOTE | 2020-05-24 16:00 | REP ---
INDICATION: r/o retro peritoneal bleed from fall COMPARISON: None. TECHNIQUE: CT Scan of the abdomen and pelvis was performed with intravenous administration of 100 cc of Isovue 370, and oral contrast. FINDINGS: Lung bases: There are dependent atelectatic changes. There is a calcified granuloma in left lower lobe. Liver: Normal Gallbladder: Unremarkable. Spleen: Normal. Adrenals: Normal. Pancreas: Normal. Kidneys: Normal. Small and large bowel: There is sigmoid diverticulosis. There is inflammatory stranding of the pericolonic fat in this region, compatible with sigmoid diverticulitis. Free fluid: None. Abdominal aorta: No aneurysm or dissection. Adenopathy: None. Appendix: Not inflamed. Osseous structures: There are degenerative changes of the spine without compression deformity. Pelvis: No mass. There is a small umbilical hernia containing noninflamed fat. IMPRESSION: Sigmoid diverticulitis. No free air or free fluid. No other acute abnormalities. <Electronically signed by Андрей Ferraro > 05/24/20 [id number]
[2020-05-24 16:17] LABS: BASO # 0.1 10^3/uL (0.0-0.2); BASO % 0.5 % (0.0-1.0); EOS # 0.2 10^3/uL (0.0-0.5); EOS % 1.5 % (0.0-3.0); HEMATOCRIT 48.8 % (42.0-52.0); HEMOGLOBIN 16.1 g/dl (13.5-17.5); LYMPH # 2.8 10^3/uL (1.5-5.0); LYMPH % 28.7 % (24.0-44.0); MEAN CORPUSCULAR HEMOGLOBIN 31.2 pg (27.0-33.0); MEAN CORPUSCULAR VOLUME 94.6 fl (80.0-96.0); MONO # 0.7 10^3/uL (0.0-0.8); MONO % 7.5 % (2.0-8.0); NEUTROPHILS # 6.1 10^3/uL (1.5-8.5); NEUTROPHILS % 61.4 % (36.0-66.0); PLATELET COUNT, AUTOMATED 221 10^3/uL (150-450); RED BLOOD COUNT 5.16 10^6/uL (4.30-6.10); WHITE BLOOD COUNT 9.9 10^3/uL (4.0-10.0)
[2020-05-24 16:20] LABS: APPEARANCE, URINE CLEAR (CLEAR); BACTERIA, URINE AUTO NEGATIVE (NEGATIVE); BILIRUBIN, URINE AUTO NEGATIVE (NEGATIVE); BLOOD, URINE BLOOD NEGATIVE (NEGATIVE); COLOR, URINE YELLOW (YELLOW); GLUCOSE, URINE (UA) AUTO NEGATIVE (NEGATIVE); KETONE, URINE AUTO NEGATIVE (NEGATIVE); LEUKOCYTE ESTERASE, URINE AUTO NEGATIVE (NEGATIVE); NITRITE, URINE AUTO NEGATIVE (NEGATIVE); PROTEIN, URINE AUTO NEGATIVE (NEGATIVE); RBC, URINE AUTO 0 /HPF (0-3); SPECIFIC GRAVITY URINE AUTO 1.048 (1.002-1.035); SQUAMOUS EPITHELIAL CELL UR AU 0 /HPF (0-6); UROBILINOGEN, URINE AUTO 0.2 mg/dL (0.0-2.0); WBC, URINE AUTO 0 /HPF (0-3)
[2020-05-24 16:27] LABS: INR 1.01; PROTHROMBIN TIME 13.5 SECONDS (12.5-14.3)
[2020-05-24 16:28] LABS: PARTIAL THROMBOPLASTIN TIME 47.9 SECONDS (24.2-38.5)
[2020-05-24] MEDS ORDERED: AUGM875T28 PO (17:53)
[2020-05-24 17:57] VITALS: BP 143/84
== END 2020-05-24 18:02 | disposition home or self-care (01) ==
LOC: M ED 12:28
DX: S30.0XXA Contusion of lower back and pelvis, initial encounter (principal); W01.10XA Fall on same level from slipping, tripping and stumbling with subsequent striking against unspecified object, initial encounter; Y92.9 Unspecified place or not applicable; Y93.9 Activity, unspecified; Y99.0 Civilian activity done for income or pay; K57.32 Diverticulitis of large intestine without perforation or abscess without bleeding; M51.36 Other intervertebral disc degeneration, lumbar region; K42.9 Umbilical hernia without obstruction or gangrene; M13.80 Other specified arthritis, unspecified site; E78.5 Hyperlipidemia, unspecified; K21.9 Gastro-esophageal reflux disease without esophagitis; F17.200 Nicotine dependence, unspecified, uncomplicated; Z88.8 Allergy status to other drugs, medicaments and biological substances; Z79.899 Other long term (current) drug therapy
CPT/HCPCS: 36415; 74177; 80047; 81001; 85025; 85610; 85730; 99284; Q9967

== ENCOUNTER → 2020-09-05 | Outpatient (CLI) | payer OTHER ==
[~2020-09-05] MED LIST changes: +AUGM875T28 PO
[2020-09-05 09:36] LABS: BASO # 0.1 10^3/uL (0.0-0.2); BASO % 0.7 % (0.0-1.0); EOS # 0.2 10^3/uL (0.0-0.5); EOS % 3.5 % (0.0-3.0); HEMATOCRIT 50.4 % (42.0-52.0); HEMOGLOBIN 16.7 g/dl (13.5-17.5); LYMPH % 43.9 % (24.0-44.0); MEAN CORPUSCULAR HGB CONC 33.1 g/dl (32.0-36.5); MEAN CORPUSCULAR VOLUME 93.5 fl (80.0-96.0); MONO # 0.5 10^3/uL (0.0-0.8); MONO % 7.8 % (2.0-8.0); PLATELET COUNT, AUTOMATED 220 10^3/uL (150-450); RED BLOOD COUNT 5.39 10^6/uL (4.30-6.10); WHITE BLOOD COUNT 6.9 10^3/uL (4.0-10.0)
[2020-09-05 10:05] LABS: ALBUMIN 3.8 GM/DL (3.2-5.2); ALT/SGPT 29 U/L (12-78); BILIRUBIN,TOTAL 0.2 MG/DL (0.2-1.0); BLOOD UREA NITROGEN 18 MG/DL (7-18); CALCIUM LEVEL 8.8 MG/DL (8.8-10.2); CARBON DIOXIDE LEVEL 27 MEQ/L (21-32); CHLORIDE LEVEL 111 MEQ/L (98-107); CHOLESTEROL LEVEL 136 MG/DL (<200); CHOLESTEROL RISK RATIO 3.675 (<5); CREATININE FOR GFR 0.94 MG/DL (0.70-1.30); GLOMERULAR FILTRATION RATE > 60.0 (>49); GLUCOSE, FASTING 90 MG/DL (70-100); HDL CHOLESTEROL 37 MG/DL (>40); LDL CHOLESTEROL 83 MG/DL (<100); NON-HDL-C 99 MG/DL; POTASSIUM SERUM 4.9 MEQ/L (3.5-5.1); SODIUM LEVEL 141 MEQ/L (136-145); TOTAL PROTEIN 7.2 GM/DL (6.4-8.2); TRIGLYCERIDES LEVEL 78 MG/DL (<150)
== END ==
LOC: M LAB 08:23
PROVIDERS: ATTEND Family Medicine
DX: Z00.00 Encounter for general adult medical examination without abnormal findings (principal)

== ENCOUNTER → 2021-01-11 | Outpatient (REF) | payer OTHER | LOC: M SFHCPLAZ 14:13 | PROVIDERS: ATTEND Family Medicine | DX: Z53.9 Procedure and treatment not carried out, unspecified reason (principal); D66 Hereditary factor VIII deficiency ==

== ENCOUNTER → 2021-01-11 | Outpatient (CLI) | payer OTHER ==
[2021-01-11 17:47] LABS: BASO # 0.1 10^3/uL (0.0-0.2); BASO % 0.5 % (0.0-1.0); EOS # 0.3 10^3/uL (0.0-0.5); EOS % 2.9 % (0.0-3.0); HEMATOCRIT 46.2 % (42.0-52.0); HEMOGLOBIN 15.7 g/dl (13.5-17.5); LYMPH % 30.2 % (24.0-44.0); MEAN CORPUSCULAR HEMOGLOBIN 31.7 pg (27.0-33.0); MEAN CORPUSCULAR VOLUME 93.3 fl (80.0-96.0); MONO # 0.7 10^3/uL (0.0-0.8); MONO % 7.3 % (2.0-8.0); NEUTROPHILS # 5.8 10^3/uL (1.5-8.5); NEUTROPHILS % 58.8 % (36.0-66.0); PLATELET COUNT, AUTOMATED 211 10^3/uL (150-450); RED BLOOD COUNT 4.95 10^6/uL (4.30-6.10); WHITE BLOOD COUNT 9.8 10^3/uL (4.0-10.0)
[2021-01-11 17:52] LABS: ALBUMIN 3.8 GM/DL (3.2-5.2); ALT/SGPT 29 U/L (12-78); BILIRUBIN,TOTAL 0.4 MG/DL (0.2-1.0); BLOOD UREA NITROGEN 12 MG/DL (7-18); CALCIUM LEVEL 9.2 MG/DL (8.8-10.2); CARBON DIOXIDE LEVEL 27 MEQ/L (21-32); CHLORIDE LEVEL 108 MEQ/L (98-107); CREATININE FOR GFR 0.94 MG/DL (0.70-1.30); GLOMERULAR FILTRATION RATE > 60.0 (>49); GLUCOSE, FASTING 76 MG/DL (70-100); POTASSIUM SERUM 4.1 MEQ/L (3.5-5.1); SODIUM LEVEL 139 MEQ/L (136-145); TOTAL PROTEIN 7.3 GM/DL (6.4-8.2)
[2021-01-11 18:01] LABS: HEPATITIS B SURFACE ANTIBODY NEGATIVE (POSITIVE)
== END ==
LOC: M PLALAB 14:25
PROVIDERS: ATTEND Student in an Organized Health Care Education/Training Program
DX: D66 Hereditary factor VIII deficiency (principal)

== ENCOUNTER → 2021-03-30 | Outpatient (CLI) | payer OTHER | LOC: M LABSMTC 13:36 | PROVIDERS: ATTEND Pediatrics | DX: Z20.822 Contact with and (suspected) exposure to COVID-19 (principal) | CPT/HCPCS: C9803; U0003 ==

== ENCOUNTER → 2021-05-16 | Outpatient (CLI) | payer OTHER ==
[~2021-05-16] MED LIST changes: +OMEP-173 PO; -OMEP-218 PO
== END ==
LOC: M RAD 15:52
PROVIDERS: ATTEND Family Medicine
DX: Z12.2 Encounter for screening for malignant neoplasm of respiratory organs (principal)

== ENCOUNTER → 2023-02-23 | Outpatient (CLI) | payer MEDICARE, OTHER ==
[2023-02-23 09:22] LABS: HEMATOCRIT 48.4 % (42.0-52.0); HEMOGLOBIN 16.5 g/dl (13.5-17.5); MEAN CORPUSCULAR HEMOGLOBIN 31.9 pg (27.0-33.0); MEAN CORPUSCULAR HGB CONC 34.1 g/dl (32.0-36.5); MEAN CORPUSCULAR VOLUME 93.4 fl (80.0-96.0); PLATELET COUNT, AUTOMATED 190 10^3/uL (150-450); RED BLOOD COUNT 5.18 10^6/uL (4.30-6.10); WHITE BLOOD COUNT 5.7 10^3/uL (4.0-10.0)
[2023-02-23 09:33] LABS: INR 1.03; PROTHROMBIN TIME 13.1 SECONDS (12.5-14.5)
[2023-02-23 09:45] LABS: CREATININE, URINE 30.3 MG/DL; MAU/CREAT RATIO 13.2 MCG/MG (0.0-30.0)
[2023-02-23 09:47] LABS: C REACTIVE PROTEIN QUANTITATIV < 0.40 MG/DL (<1.0)
[2023-02-23 09:48] LABS: ALBUMIN 3.8 G/DL (3.2-5.2); ALKALINE PHOSPHATASE 48 U/L (46-116); ALT/SGPT 17 U/L (7.0-40); AST/SGOT 18 U/L (<34); BILIRUBIN,TOTAL 0.4 MG/DL (0.3-1.2); BLOOD UREA NITROGEN 20 MG/DL (9-23); CALCIUM LEVEL 9.1 MG/DL (8.3-10.6); CARBON DIOXIDE LEVEL 26 MMOL/L (20-31); CHLORIDE LEVEL 108 MMOL/L (98-107); CHOLESTEROL LEVEL 192 MG/DL (<200); CHOLESTEROL RISK RATIO 5.03 (<5); CREATININE FOR GFR 0.82 MG/DL (0.70-1.30); GLOMERULAR FILTRATION RATE > 60.0 (>49); GLUCOSE, FASTING 107 MG/DL (74-106); HDL CHOLESTEROL 38.1 MG/DL (>40); LDL CHOLESTEROL 131.7 MG/DL (<100); NON-HDL-C 153.9 MG/DL; POTASSIUM SERUM 4.4 MMOL/L (3.5-5.1); SODIUM LEVEL 139 MMOL/L (136-145); TRIGLYCERIDES LEVEL 111 MG/DL (<150)
[2023-02-23 09:49] LABS: THYROID STIMULATING HORMONE 1.767 uIU/ML (0.55-4.78); TOTAL 25(OH) VITAMIN D 26.4 NG/ML (20.0-100.0)
[2023-02-23 09:50] LABS: VITAMIN B12 LEVEL 531 PG/ML (211-911)
[2023-02-23 10:14] LABS: HEMOGLOBIN A1c 5.4 % (4.0-6.0)
[2023-02-27 15:07] LABS: F8 ACTIVITY FOR F8 PANEL 16 % (56-140); F8 ACTIVITY vWB FOR F8 PANEL 216 % (50-200); F8 ANTIGEN FOR F8 PANEL 220 % (50-200)
== END ==
LOC: M LAB 08:17
PROVIDERS: ATTEND Internal Medicine Hematology
DX: Z12.5 Encounter for screening for malignant neoplasm of prostate (principal); D66 Hereditary factor VIII deficiency; F17.200 Nicotine dependence, unspecified, uncomplicated; Z79.899 Other long term (current) drug therapy
CPT/HCPCS: 36415; 80053; 80061; 82043; 82306; 82607; 83036; 84439; 84443; 85027; 85240; 85245; 85246; 85610; 85730; 86140; G0103

== ENCOUNTER → 2023-04-27 | Outpatient (CLI) | payer MEDICARE | LOC: M RAD 12:36 | PROVIDERS: ATTEND Internal Medicine Hematology | DX: Z12.2 Encounter for screening for malignant neoplasm of respiratory organs (principal); F17.210 Nicotine dependence, cigarettes, uncomplicated; I70.0 Atherosclerosis of aorta; I25.10 Atherosclerotic heart disease of native coronary artery without angina pectoris; J43.9 Emphysema, unspecified; J84.9 Interstitial pulmonary disease, unspecified; R59.0 Localized enlarged lymph nodes ==

== ENCOUNTER → 2023-08-24 | Outpatient (CLI) | payer MEDICARE ==
[2023-08-24 10:14] LABS: BASO # 0.1 10^3/uL (0.0-0.2); BASO % 0.6 % (0.0-1.0); EOS # 0.3 10^3/uL (0.0-0.5); EOS % 3.6 % (0.0-3.0); HEMATOCRIT 49.4 % (42.0-52.0); HEMOGLOBIN 16.6 g/dl (13.5-17.5); LYMPH # 2.4 10^3/uL (1.5-5.0); LYMPH % 30.8 % (24.0-44.0); MEAN CORPUSCULAR HGB CONC 33.6 g/dl (32.0-36.5); MEAN CORPUSCULAR VOLUME 95.2 fl (80.0-96.0); MONO # 0.6 10^3/uL (0.0-0.8); NEUTROPHILS # 4.4 10^3/uL (1.5-8.5); NEUTROPHILS % 56.6 % (36.0-66.0); PLATELET COUNT, AUTOMATED 232 10^3/uL (150-450); RED BLOOD COUNT 5.19 10^6/uL (4.30-6.10); WHITE BLOOD COUNT 7.8 10^3/uL (4.0-10.0)
[2023-08-24 10:31] LABS: ALBUMIN 3.8 G/DL (3.2-5.2); ALKALINE PHOSPHATASE 58 U/L (46-116); ALT/SGPT 21 U/L (7.0-40); AST/SGOT 10 U/L (<34); BILIRUBIN,TOTAL 0.3 MG/DL (0.3-1.2); BLOOD UREA NITROGEN 24 MG/DL (9-23); CALCIUM LEVEL 9.6 MG/DL (8.3-10.6); CARBON DIOXIDE LEVEL 28 MMOL/L (20-31); CHLORIDE LEVEL 107 MMOL/L (98-107); CREATININE FOR GFR 0.89 MG/DL (0.70-1.30); GLOMERULAR FILTRATION RATE > 60.0 (>49); GLUCOSE, FASTING 105 MG/DL (74-106); POTASSIUM SERUM 4.8 MMOL/L (3.5-5.1); RHEUMATOID FACTOR QUANT 7.7 IU/ML (<14); SODIUM LEVEL 138 MMOL/L (136-145); TOTAL PROTEIN 7.1 G/DL (5.7-8.2)
[2023-08-24 10:47] LABS: ERYTHROCYTE SEDIMENTATION RATE 27 mm/hr (0-20)
== END ==
LOC: M PLALAB 07:06
PROVIDERS: ATTEND Internal Medicine Hematology
DX: M19.90 Unspecified osteoarthritis, unspecified site (principal)

== ENCOUNTER → 2024-05-23 | Outpatient (CLI) | payer MEDICARE | LOC: M RAD 16:34 | PROVIDERS: ATTEND Internal Medicine Critical Care Medicine | DX: F17.218 Nicotine dependence, cigarettes, with other nicotine-induced disorders (principal); J84.10 Pulmonary fibrosis, unspecified ==

== ENCOUNTER → 2025-01-12 | Outpatient (CLI) | payer MEDICARE ==
[~2025-01-12] MED LIST changes: +ADVA1INJ4 IV; +CLIN150C17; +FLUT1BLS5; +META0.52 PO; +TRAN650T PO; +VENTAER; +[UNRECOGNIZED DRUG - CODE] IV
[2025-01-12 09:22] LABS: BASO # 0.1 10^3/uL (0.0-0.2); BASO % 0.7 % (0.0-1.0); EOS # 0.4 10^3/uL (0.0-0.5); EOS % 4.7 % (0.0-3.0); LYMPH # 2.6 10^3/uL (1.5-5.0); LYMPH % 34.7 % (24.0-44.0); MONO # 0.6 10^3/uL (0.0-0.8); MONO % 7.4 % (2.0-8.0); NEUTROPHILS # 4.0 10^3/uL (1.5-8.5); NEUTROPHILS % 52.4 % (36.0-66.0); PLATELET COUNT, AUTOMATED 234 10^3/uL (150-450)
[2025-01-12 09:47] LABS: ESTIMATED AVERAGE GLUCOSE 123.0 MG/DL (60-110)
[2025-01-12 09:48] LABS: ALT/SGPT 15 U/L (7.0-40); AST/SGOT 16 U/L (<34); CALCIUM LEVEL 9.5 MG/DL (8.3-10.6); CARBON DIOXIDE LEVEL 29 MMOL/L (20-31); CHLORIDE LEVEL 106 MMOL/L (98-107); CHOLESTEROL LEVEL 173 MG/DL (<200); CHOLESTEROL RISK RATIO 5.07 (<5); CREATININE FOR GFR 0.89 MG/DL (0.70-1.30); GLOMERULAR FILTRATION RATE > 90.0 (>49); LDL CHOLESTEROL 111.5 MG/DL (<100); NON-HDL-C 138.9 MG/DL; POTASSIUM SERUM 4.5 MMOL/L (3.5-5.1); SODIUM LEVEL 143 MMOL/L (136-145); TRIGLYCERIDES LEVEL 137 MG/DL (<150)
[2025-01-16 10:13] LABS: PSA SCREENING 0.84 NG/ML (< 4.00)
== END ==
LOC: M LAB 07:45
PROVIDERS: ATTEND Student in an Organized Health Care Education/Training Program
DX: Z00.00 Encounter for general adult medical examination without abnormal findings (principal); E78.00 Pure hypercholesterolemia, unspecified; Z12.5 Encounter for screening for malignant neoplasm of prostate; Z79.899 Other long term (current) drug therapy
CPT/HCPCS: 36415; 80053; 80061; 83036; 85025; G0103